=== PATIENT | male | born 1985 | race American Indian/Alaskan Native ===

== ENCOUNTER 2016-03-04 15:46 | Emergency (ER) | payer OTHER ==
[2016-03-04 15:59] VITALS: BP 127/82
[2016-03-04] MEDS ORDERED: MORPHINE IV ONE (16:05)
[2016-03-04] MEDS ORDERED: ZOFRAN IV ONE (16:05)
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
--- NOTE | 2016-03-04 16:53 | Cat Scan Report ---
CT scan of head without contrast: History: Pain tinnitus. Findings: Ventricles are normal in size and midline in location. No evidence of acute ischemia, hemorrhage or mass. No extra-axial fluid collection. Normal brainstem and cerebellum. Impression: Essentially negative CT scan of head.
[2016-03-04] MEDS ORDERED: SUBLIMAZE IV ONE (17:10)
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
--- NOTE | 2016-03-05 08:14 | XRay Report ---
Bilateral clavicles 2 views. Findings: There are no fractures or other significant findings.
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
--- NOTE | 2016-03-05 09:57 | XRay Report ---
RIGHT ELBOW, 2 VIEWS: HISTORY: Pain. FINDINGS: Bone mineralization is normal. No acute osseous findings or joint pathology is appreciated. Small olecranon spur is noted. No joint effusion. IMPRESSION: No acute injury is appreciated. Small olecranon spur.
== END 2016-03-04 19:25 | disposition home or self-care (01) ==
LOC: ED 15:46
DX: M54.12 Radiculopathy, cervical region (principal); S50.01XA Contusion of right elbow, initial encounter; M54.6 Pain in thoracic spine; V49.49XA Driver injured in collision with other motor vehicles in traffic accident, initial encounter; Y93.9 Activity, unspecified; Y92.9 Unspecified place or not applicable; Y99.9 Unspecified external cause status; F17.200 Nicotine dependence, unspecified, uncomplicated
CPT/HCPCS: 70450; 72072; 72125; 73000; 73070; 96374; 96375; 99284; J2270; J2405; J3010

== ENCOUNTER 2020-02-12 17:57 | Emergency (ER) | payer OTHER ==
--- NOTE | 2020-02-12 18:13 | Emergency Department Report ---
Blank Doc - Documentation Documentation: 34-year-old male that presents with midsternum chest pains. Dennis any radiation or SOB. This initial assessment/diagnostic orders/clinical plan/treatment(s) is/are subject to change based on patient's health status, clinical progression and re- assessment by fellow clinical providers in the ED. Further treatment and workup at subsequent clinical providers discretion. Patient/guardians urged not to elope from the ED as their condition may be serious if not clinically assessed and managed. Initial orders include: 1- Patient sent to [facility] for further evaluation and treatment 2- EKG 3- CXR
[2020-02-12 18:15] VITALS: BP 135/84
--- NOTE | 2020-02-12 18:48 | XRay Report ---
CHEST 2 VIEWS INDICATION / CLINICAL INFORMATION: cp. COMPARISON: None available. FINDINGS: SUPPORT DEVICES: None. HEART / MEDIASTINUM: No significant abnormality. LUNGS / PLEURA: No significant pulmonary or pleural abnormality. No pneumothorax. ADDITIONAL FINDINGS: No significant additional findings. IMPRESSION: 1. No acute findings. Signer Name: Bill Vargas MD Signed: 02/12/2020 6:44 PM Workstation Name: [id number]
--- NOTE | 2020-02-12 20:31 | Emergency Department Report ---
ED General Adult HPI - General Chief complaint: Chest Pain Stated complaint: CHEST PAIN, URI Time Seen by Provider: 02/12/20 18:13 Source: patient Mode of arrival: Ambulatory Limitations: No Limitations - History of Present Illness Initial comments: Patient is a 34-year-old male presents emergency room complaints of a cervical lymphadenopathy that began a few days ago. he states he has had this intermittently since 2010. He states that he also has some mild substernal described as a tightness and aching sensation that has been going on around the same time that he noticed the swollen lymph node. He denies any fever, cough, nausea, vomiting, rhinorrhea, sore throat, ear pain, diarrhea, leg swelling, SOB, hemoptysis. he denies any pleuritic CP. He denies any sick contacts or recent travel. He does not have a primary care physician. No past medical history. No allergies to medications. He endorses tobacco use. - Related Data Previous Rx's Medication Instructions Recorded Last Taken Type Cyclobenzaprine [Flexeril] 10 mg PO TID PRN #14 tablet 03/04/16 Unknown Rx HYDROcodone/APAP 5-325 [[place] 1 - 2 each PO Q6HR PRN #20 tablet 03/04/16 Unknown Rx 5/325] Ibuprofen [Motrin 800 MG tab] 800 mg PO Q8HR PRN #20 tablet 03/04/16 Unknown Rx Prednisone [predniSONE 10 mg 10 mg PO .TAPER #1 tab.ds.pk 03/04/16 Unknown Rx (6-Day Pack, 21 Tabs)] Allergies Allergy/AdvReac Type Severity Reaction Status Date / Time No Known Allergies Allergy Verified 07/28/13 07:19 ED Review of Systems ROS: Stated complaint: CHEST PAIN, URI Other details as noted in HPI Comment: All other systems reviewed and negative ED Past Medical Hx - Past Medical History Previous Medical History?: No Additional medical history: hx of lymph nodules swelling x 1 year - Social History Smoking Status: Current Every Day Smoker Substance Use Type: None - Medications Home Medications: Home Medications Medication Instructions Recorded Confirmed Last Taken Type Cyclobenzaprine [Flexeril] 10 mg PO TID PRN #14 tablet 03/04/16 Unknown Rx HYDROcodone/APAP 5-325 [[place] 1 - 2 each PO Q6HR PRN #20 tablet 03/04/16 Unknown Rx 5/325] Ibuprofen [Motrin 800 MG tab] 800 mg PO Q8HR PRN #20 tablet 03/04/16 Unknown Rx Prednisone [predniSONE 10 mg 10 mg PO .TAPER #1 tab.ds.pk 03/04/16 Unknown Rx (6-Day Pack, 21 Tabs)] ED Physical Exam - General Limitations: No Limitations General appearance: alert, in no apparent distress - Head Head exam: Present: atraumatic, normocephalic - Eye Eye exam: Present: normal appearance - ENT ENT exam: Present: normal orophraynx, mucous membranes moist, TM's normal bilaterally, normal external ear exam - Neck Neck exam: Present: full ROM, lymphadenopathy (small freely moveable left anterior cervical LAD, no significant edema, erythema, or ttp). Absent: tenderness, meningismus - Respiratory Respiratory exam: Present: normal lung sounds bilaterally. Absent: respiratory distress, wheezes, rales, rhonchi, stridor, chest wall tenderness, accessory muscle use, decreased breath sounds, prolonged expiratory - Cardiovascular Cardiovascular Exam: Present: regular rate, normal rhythm, normal heart sounds. Absent: systolic murmur, diastolic murmur, rubs, gallop - Neurological Exam Neurological exam: Present: alert, oriented X3 - Psychiatric Psychiatric exam: Present: normal affect, normal mood - Skin Skin exam: Present: warm, dry, intact ED Course Vital Signs 02/12/20 02/12/20 18:13 20:52 Temperature 98.1 F Pulse Rate 86 96 H Respiratory 18 18 Rate Blood Pressure 135/84 O2 Sat by Pulse 95 98 Oximetry ED Medical Decision Making - Lab Data Vital Signs 02/12/20 02/12/20 18:13 20:52 Temperature 98.1 F Pulse Rate 86 96 H Respiratory 18 18 Rate Blood Pressure 135/84 O2 Sat by Pulse 95 98 Oximetry - EKG Data EKG shows normal: sinus rhythm, axis, intervals Rate: normal - EKG Data 02/12/20 20:29 normal early repolarization, NO STEMI does not meet criteria for LVH - Radiology Data Radiology results: report reviewed Ordering Physician: INDIRA ADAMES NP Date of Service: 02/12/20 Procedure(s): XR chest routine 2V Accession Number(s): [id number] cc: INDIRA ADAMES NP Fluoro Time In Minutes: CHEST 2 VIEWS INDICATION / CLINICAL INFORMATION: cp. COMPARISON: None available. FINDINGS: SUPPORT DEVICES: None. HEART / MEDIASTINUM: No significant abnormality. LUNGS / PLEURA: No significant pulmonary or pleural abnormality. No pneumothorax. ADDITIONAL FINDINGS: No significant additional findings. IMPRESSION: 1. No acute findings. Signer Name: Bill Vargas MD Signed: 02/12/2020 6:44 PM Workstation Name: [email or web address] Transcribed By: TL Dictated By: Bill Vargas MD Electronically Authenticated By: Bill Vargas MD Signed Date/Time: 02/12/201843 DD/ 43 TD/TT: - Medical Decision Making Patient is a 34-year-old male presents emergency room complaints of a cervical lymphadenopathy that began a few days ago. he states he has had this intermittently since 2010. He states that he also has some mild substernal described as a tightness and aching sensation that has been going on around the same time that he noticed the swollen lymph node. He denies any fever, cough, nausea, vomiting, rhinorrhea, sore throat, ear pain, diarrhea, leg swelling, SOB, hemoptysis. he denies any pleuritic CP. He denies any sick contacts or recent travel. He does not have a primary care physician. No past medical history. No allergies to medications. He endorses tobacco use. on exam: small freely moveable left anterior cervical LAD, no significant edema, erythema, or ttp, normal oropharynx. Orders placed prior to my examination. Chest x-ray with no acute process. EKG with normal early repolarization, otherwise normal. Do not suspect acute bacterial infection, do not suspect infected lymph node, pt is not requiring abx at this time. Symptoms appear most consistent with viral URI. Advised patient May alternate 600 mg of ibuprofen and then 650 mg of Tylenol every 6-8 hours as needed for discomfort. Increase your fluid intake over the next several days. May gargle with warm salt water. Follow-up with your primary care doctor. I have listed several primary care doctors below. Return to emergency room for any new or worsening symptoms. - Differential Diagnosis Pharyngitis, tonsillitis, lymphadenitis, viral syndrome, sialoadenitis Critical care attestation.: If time is entered above; I have spent that time in minutes in the direct care of this critically ill patient, excluding procedure time. ED Disposition Clinical Impression: Viral illness, LAD (lymphadenopathy), cervical Disposition: DC-01 TO HOME OR SELFCARE Is pt being admited?: No Does the pt Need Aspirin: No Condition: Stable Instructions: Lymphadenopathy, Viral Illness, Adult Additional Instructions: May alternate 600 mg of ibuprofen and then 650 mg of Tylenol every 6-8 hours as needed for discomfort. Increase your fluid intake over the next several days. May gargle with warm salt water. Follow-up with your primary care doctor. I have listed several primary care doctors below. Return to emergency room for any new or worsening symptoms. Referrals: PRIMARY MD DEBBIE [Primary Care Provider] - 3-5 Days DOLORES NARVAEZ MD [Staff Physician] - 3-[address] [facility] [Provider Group] - 3-5 Days KUNAL MALDONADO MD [Staff Physician] - 3-5 Days ALLEY MENDEZ MD [Staff Physician] - 3-5 Days ROSITA APODACA MD [Staff Physician] - 3-5 Days Forms: Work/School Release Form(ED) Time of Disposition: 20:31 Print Language: ANGUILLAN
== END 2020-02-12 20:51 | disposition home or self-care (01) ==
LOC: ED 17:57
DX: B34.9 Viral infection, unspecified (principal); R59.0 Localized enlarged lymph nodes; F17.200 Nicotine dependence, unspecified, uncomplicated; Z79.1 Long term (current) use of non-steroidal anti-inflammatories (NSAID); Z79.899 Other long term (current) drug therapy
CPT/HCPCS: 71046; 93005

== ENCOUNTER 2020-04-18 11:51 | Emergency (ER) | payer OTHER | END 2020-04-18 12:38 | disposition left against medical advice (07) | LOC: ED 11:51 | DX: K64.9 Unspecified hemorrhoids (principal); Z53.21 Procedure and treatment not carried out due to patient leaving prior to being seen by health care provider ==

== ENCOUNTER 2021-02-01 10:20 | Emergency (ER) | payer SELFPAY ==
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
[2021-02-01 11:51] LABS: Hematocrit 42.8 % (35.5-45.6); Hemoglobin 14.3 gm/dl (11.8-15.2); Mean Corpuscular HGB Conc 34 % (32-34); Platelet Count 220 K/mm3 (140-440)
[2021-02-01 11:56] LABS: BUN/Creatinine Ratio 13; Blood Urea Nitrogen 16 mg/dL (9-20); Calcium 9.2 mg/dL (8.4-10.2); Hemolysis Index 9
[2021-02-01 11:58] LABS: Mean Corpuscular Volume 113 fl (84-94)
[2021-02-01] MEDS ORDERED: ZIPRASIDONE MESYLATE 20 MG VIAL IM ONE (12:04)
[2021-02-01] MEDS ORDERED: WATER FOR INJ Sterile (PF) 10 ML ONE (12:06)
[2021-02-01 15:33] LABS: Total Cells Counted 100
[2021-02-01 15:34] LABS: Anisocytosis 1+; Band Neutrophils # (Manual) 0.1 K/mm3; Platelet Estimate Consistent w Auto
[2021-02-01] MEDS ORDERED: LORazepam 2 MG/ML VIAL IV ONE (15:48)
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
[2021-02-02 12:48] VITALS: BP 112/64
== END 2021-02-02 01:00 | disposition home or self-care (01) ==
LOC: ED 10:20
DX: S11.90XA Unspecified open wound of unspecified part of neck, initial encounter (principal); H53.8 Other visual disturbances; F17.200 Nicotine dependence, unspecified, uncomplicated; F23 Brief psychotic disorder; W34.09XA Accidental discharge from other specified firearms, initial encounter; Y93.89 Activity, other specified; Y92.89 Other specified places as the place of occurrence of the external cause; Y99.8 Other external cause status; F20.9 Schizophrenia, unspecified; F43.10 Post-traumatic stress disorder, unspecified
CPT/HCPCS: 36415; 70496; 70498; 80048; 85007; 85025; 96372; 96374; 99284; J2060; J3486; Q9967; 80320; G0480

== ENCOUNTER 2021-02-05 16:22 | Emergency (ER) | payer SELFPAY ==
[2021-02-05] MEDS ORDERED: ZIPRASIDONE MESYLATE 20 MG VIAL IM ONE ×2 (16:43→16:56)
[2021-02-05] MEDS ORDERED: WATER FOR INJ Sterile (PF) 10 ML ONE (16:43)
[2021-02-05 18:29] LABS: Hematocrit 37.6 % (35.5-45.6); Hemoglobin 12.8 gm/dl (11.8-15.2); Mean Corpuscular HGB Conc 34 % (32-34); Platelet Count 222 K/mm3 (140-440); Red Blood Count 3.33 M/mm3 (3.65-5.03); Red Cell Distribution Width 13.5 % (13.2-15.2)
[2021-02-05 18:39] LABS: Mean Corpuscular Volume 113 fl (84-94)
[2021-02-05 18:45] LABS: Alanine Aminotransferase 16 units/L (7-56); BUN/Creatinine Ratio 9; Blood Urea Nitrogen 11 mg/dL (9-20); Hemolysis Index 3
--- NOTE | 2021-02-05 20:04 | Emergency Department Report ---
ED Psych HPI - General Chief Complaint: Psych Stated Complaint: SI Time Seen by Provider: 02/05/21 16:44 Source: patient, EMS Mode of arrival: Ambulatory - History of Present Illness MD Complaint: suicidal ideation -: week(s) Associated Psychiatric Symptoms: depression, suicidal ideation History of same: No Quality: constant Improves With: none Worsens With: none - Related Data Previous Rx's Medication Instructions Recorded Last Taken Type Neomycin/Bacitracin/Polymyxinb 3.75 gm TP BID #1 oint...g. 02/02/21 Unknown Rx [Triple Antibiotic Ointment] risperiDONE [RisperDAL] 0 mg PO QHS 30 Days #30 tablet 02/02/21 Unknown Rx traZODone [Desyrel] 50 mg PO QHS 30 Days #30 tab 02/02/21 Unknown Rx Allergies Allergy/AdvReac Type Severity Reaction Status Date / Time No Known Allergies Allergy Verified 02/05/21 16:27 ED Review of Systems ROS: Stated complaint: SI Other details as noted in HPI Constitutional: denies: chills, fever Eyes: denies: eye pain, eye discharge, vision change ENT: denies: ear pain, throat pain Respiratory: denies: cough, shortness of breath, wheezing Cardiovascular: denies: chest pain, palpitations Endocrine: no symptoms reported Gastrointestinal: denies: abdominal pain, nausea, diarrhea Genitourinary: denies: urgency, dysuria Musculoskeletal: denies: back pain, joint swelling, arthralgia Skin: denies: rash, lesions Neurological: denies: headache, weakness, paresthesias Psychiatric: denies: anxiety, depression Hematological/Lymphatic: denies: easy bleeding, easy bruising ED Past Medical Hx - Past Medical History Additional medical history: hx of lymph nodules swelling x 1 year - Social History Smoking Status: Current Every Day Smoker Substance Use Type: None - Medications Home Medications: Home Medications Medication Instructions Recorded Confirmed Last Taken Type Neomycin/Bacitracin/Polymyxinb 3.75 gm TP BID #1 oint...g. 02/02/21 Unknown Rx [Triple Antibiotic Ointment] risperiDONE [RisperDAL] 0 mg PO QHS 30 Days #30 tablet 02/02/21 Unknown Rx traZODone [Desyrel] 50 mg PO QHS 30 Days #30 tab 02/02/21 Unknown Rx ED Physical Exam - General Limitations: Altered Mental Status General appearance: alert, in no apparent distress - Head Head exam: Present: atraumatic, normocephalic - Eye Eye exam: Present: normal appearance - ENT ENT exam: Present: mucous membranes moist - Neck Neck exam: Present: normal inspection - Respiratory Respiratory exam: Present: normal lung sounds bilaterally. Absent: respiratory distress - Cardiovascular Cardiovascular Exam: Present: regular rate, normal rhythm. Absent: systolic murmur, diastolic murmur, rubs, gallop - GI/Abdominal GI/Abdominal exam: Present: soft, normal bowel sounds - Rectal Rectal exam: Present: deferred - Extremities Exam Extremities exam: Present: normal inspection - Back Exam Back exam: Present: normal inspection - Neurological Exam Neurological exam: Present: alert, oriented X3 - Psychiatric Psychiatric exam: Present: depressed, agitated, anxious, suicidal ideation - Skin Skin exam: Present: warm, dry, intact, normal color. Absent: rash ED Course Vital Signs 02/05/21 16:24 Temperature 98.2 F Pulse Rate 90 Respiratory 16 Rate Blood Pressure 128/88 [Left] O2 Sat by Pulse 98 Oximetry ED Medical Decision Making - Lab Data Result diagrams: 02/05/21 17:27 02/05/21 17:27 Critical care attestation.: If time is entered above; I have spent that time in minutes in the direct care of this critically ill patient, excluding procedure time. ED Disposition Clinical Impression: Suicidal ideations Disposition: [address] [place] [address] Is pt being admited?: No Does the pt Need Aspirin: No Condition: Stable Referrals: PRIMARY CARE, [Primary Care Provider] - 3-5 Days
[2021-02-05 21:22] LABS: Total Cells Counted 100
[2021-02-05 21:23] LABS: Macrocytosis 1+
[2021-02-05 21:26] LABS: Platelet Estimate Consistent w Auto
[2021-02-06 08:08] LABS: Bilirubin,Urine SM (Negative); Blood,Urine NEG (Negative); Color,Urine Amber (Yellow); Mucus,Urine 3+ /HPF
[2021-02-06] MEDS ORDERED: ZIPRASIDONE MESYLATE 20 MG VIAL IM ONE ×2 (08:09)
[2021-02-06 08:11] LABS: Benzodiazepines Screen,Urine Negative; Methadone Screen,Urine Negative; Opiate Screen,Urine Negative
[2021-02-06 08:27] LABS: Amphetamine Screen,Urine Positive; Cannabinoid Screen,Urine Positive; Cocaine Screen,Urine Positive
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
[2021-02-06] MEDS: traZODone 50 MG TAB PO SCH (23:00)
[2021-02-06] MEDS: risperiDONE 1 MG TAB PO SCH (23:00)
[2021-02-07] MEDS: risperiDONE 1 MG TAB PO SCH (00:32)
[2021-02-07] MEDS: traZODone 50 MG TAB PO SCH (00:32)
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
[2021-02-07 11:39] VITALS: BP 103/59
--- NOTE | 2021-02-07 13:09 | Event Note ---
Patient has been cleared by psychiatry for discharge.
== END 2021-02-07 13:33 | disposition home or self-care (01) ==
LOC: ED 16:22
DX: U07.1 COVID-19 (principal); R45.851 Suicidal ideations; F17.200 Nicotine dependence, unspecified, uncomplicated; Z79.899 Other long term (current) drug therapy
CPT/HCPCS: 36415; 80053; 80307; 81001; 85007; 85025; 96372; 99284; J3486; U0003; 80320; G0480